=== PATIENT | female | born 1985 | race Caucasian/White ===

== ENCOUNTER 2024-06-07 09:27 | Emergency (ER) | payer OTHER ==
[~2024-06-07] VITALS: Ht 154.9 cm; Wt 74.8 kg
[2024-06-07 09:28] VITALS: BP 120/81; PULSE 76; RESP 18; TEMP 98.4; O2SAT 97
[2024-06-07 10:37] LABS: BASOPHILS # (AUTO) 0.1 K/uL (0.00-0.22); BASOPHILS % (AUTO) 0.7 % (0.0-2.0); EOSINOPHILS # (AUTO) 0.8 K/uL (0-0.4); EOSINOPHILS % (AUTO) 8.7 % (0.0-4.0); HEMOGLOBIN 10.9 g/dL (12.0-16.0); LYMPHOCYTES # (AUTO) 2.2 K/uL (2.5-16.5); LYMPHOCYTES % (AUTO) 25.8 % (20.5-51.1); MEAN CORPUSCULAR HEMOGLOBIN 28 pg (27-31); MEAN CORPUSCULAR HGB CONC 33 g/dL (33-37); MEAN CORPUSCULAR VOLUME 85.2 fL (80-94); MONOCYTES # (AUTO) 0.5 K/uL (0.8-1.0); MONOCYTES % (AUTO) 5.8 % (1.7-9.3); NEUTROPHILS # (AUTO) 5.1 K/uL (1.8-7.7); PLATELET COUNT (AUTO) 368 K/uL (140-450); RED BLOOD CELL COUNT(AUTO) 3.88 MIL/uL (4.20-5.40); RED CELL DISTRIBUTION WIDTH 15.2 % (11.6-13.7); WHITE BLOOD COUNT (AUTO) 8.7 K/uL (4.8-10.8)
[2024-06-07] MEDS: KETOROLAC 30 MG/ML VIAL IVP ONE (10:46)
[2024-06-07 10:51] LABS: ANION GAP 9.8 (8-16); CALCIUM 8.5 mg/dL (8.5-10.1); CARBON DIOXIDE 27.3 mmol/L (21-32); CREATININE 0.7 mg/dL (0.6-1.3); POTASSIUM 4.1 mmol/L (3.5-5.1)
[2024-06-07 11:01] LABS: INR 0.89 (0.8-1.2); PARTIAL THROMBOPLASTIN TIME 23.8 secs (22-35.6); PROTHROMBIN TIME 9.4 secs (10.8-13.4)
[2024-06-07] MEDS ORDERED: IBUP-2213 PO (12:49)
[2024-06-07 13:15] VITALS: BP 115/75; PULSE 67; RESP 20; TEMP 98.4; O2SAT 97
== END 2024-06-07 13:15 | disposition home or self-care (01) ==
LOC: MED 09:27
DX: S83.91XA Sprain of unspecified site of right knee, initial encounter (principal); S20.219A Contusion of unspecified front wall of thorax, initial encounter; Z79.1 Long term (current) use of non-steroidal anti-inflammatories (NSAID); V43.52XA Car driver injured in collision with other type car in traffic accident, initial encounter; Y93.89 Activity, other specified; Y92.89 Other specified places as the place of occurrence of the external cause; Y99.8 Other external cause status
CPT/HCPCS: 36415; 71045; 73562; 80048; 81025; 84484; 85025; 85610; 85730; 93005; 96374; 99285; J1885